=== PATIENT | male | born 1965 | race Caucasian/White ===

== ENCOUNTER 2017-03-15 09:47 | Inpatient (IN) | payer OTHER ==
[~2017-03-15] VITALS: Ht 167.6 cm; Wt 90.3 kg
[2017-03-15 10:25] LABS: Basophils # (auto) 0 uL; Basophils % (auto) 0.3 % (0.0-2.0); Eosinophils # (auto) 0.4 uL; Eosinophils % (auto) 3.3 % (0.0-7.0); Hematocrit 47.4 % (41.0-53.0); Hemoglobin 16.6 g/dL (13.5-17.5); Lymphocytes # (auto) 2.1 uL; Lymphocytes % (auto) 16.1 % (10.0-50.0); Mean Corpuscular Hemoglobin 31.3 pg (28.0-32.0); Mean Corpuscular Volume 89.3 fL (80.0-100.0); Mean Platelet Volume 7.4 fL (7.4-10.4); Monocytes # (auto) 0.9 uL; Monocytes % (auto) 6.9 % (0.0-12.0); Neutrophils # (auto) 9.8 uL; Neutrophils % (auto) 73.4 % (37.0-80.0); Platelet Count (auto) 334 10^3/uL (140-450); Red Cell Distribution Width 12.6 % (11.6-16.0); White Blood Cell 13.3 10^3/uL (4.4-10.8)
[2017-03-15 11:04] LABS: Albumin 4.1 g/dL (3.4-5.0); BUN/Creatinine Ratio 16.5; Bilirubin, Total 0.6 mg/dL (0.2-1.0); Calcium 9.2 mg/dL (8.5-10.1); Magnesium 2.5 mg/dL (1.6-2.6); Potassium 4.5 mmol/L (3.5-5.1)
[2017-03-15] MEDS ORDERED: SODIUM CHLORIDE 0.9% 1,000 ML IV ONE (11:50)
[2017-03-15] MEDS ORDERED: ASPirin 81 mg TAB PO ONE (12:00)
[2017-03-15] MEDS ORDERED: ONDANSETRON HCL 4 MG/2 ML VIAL IV ONE (12:00)
[2017-03-15] MEDS ORDERED: MORPHINE SULFATE 4 MG/ML SYRG IV ONE (12:00)
[2017-03-15] MEDS ORDERED: NITROGLYCERIN 0.2MG/HR TOPICAL PATCH TD ONE ×2 (12:20→12:30)
[2017-03-15] MEDS ORDERED: METOPROLOL TARTRATE 1MG/1ML-5ML VIAL IV ONE (12:21)
[2017-03-15] MEDS ORDERED: METOPROLOL TARTRATE 1MG/1ML-5ML VIAL IV SCH (12:30)
[2017-03-15 13:40] LABS: INR 0.9 (0.9-1.15); Partial Thromboplastin Time 29.5 sec (22.64-33.71); Prothrombin Time 9.8 sec (9.37-12.3)
[2017-03-15] MEDS ORDERED: HEPARIN SODIUM (PORCINE) 5000 UNITS/ML 1ML VIAL ONE ×2 (14:06→14:07)
[2017-03-15] MEDS ORDERED: HEPARIN SODIUM (PORCINE) 5000 UNITS/ML 1ML VIAL IV ONE ×2 (14:15→14:30)
[2017-03-15] MEDS ORDERED: IODIXANOL 320MG/ML 100ML BTL IV ONE (14:26)
[2017-03-15] MEDS ORDERED: LIDOCAINE 2%HCL (LOCAL ANESTH.) INJ 20ML MDV ONE (14:27)
[2017-03-15] MEDS ORDERED: MIDAZOLAM HCL 1MG/1ML-2 ML VIAL ONE ×2 (14:37→15:39)
[2017-03-15] MEDS ORDERED: fentaNYL CITRATE 100 MCG/2 ML VL ONE (14:38)
[2017-03-15] MEDS ORDERED: VERAPAMIL 2.5MG/ML INJ 2ML VIAL IV ONE (14:38)
[2017-03-15] MEDS ORDERED: EPTIFIBATIDE INJ (2MG/ML) 10ML VIAL IV ONE (14:38)
[2017-03-15] MEDS ORDERED: ANGIOMAX 250 MG VIAL IV ONE (14:47)
[2017-03-15] MEDS ORDERED: SODIUM CHL 0.9% 50 ML ONE (14:47)
[2017-03-15] MEDS ORDERED: IOHEXOL 350 MG/ML 100ML IJ ONE ×2 (15:05→15:27)
[2017-03-15] MEDS ORDERED: LIDOCAINE HCL 100 MG/5ML (2%) SYRG INJ IV ONE (15:07)
[2017-03-15] MEDS ORDERED: SODIUM CHLORIDE 0.9% 1,000 ML IV SCH (15:09)
[2017-03-15] MEDS ORDERED: NITROGLYCERIN 0.4 MG SL TAB SL PRN ×2 (15:15)
[2017-03-15] MEDS ORDERED: ONDANSETRON HCL 4 MG/2 ML VIAL IV PRN (15:15)
[2017-03-15] MEDS ORDERED: HYDROcodone-ACET 5/325MG TAB PO PRN (15:15)
[2017-03-15] MEDS ORDERED: ACETAMINOPHEN 500 MG TAB PO PRN (15:15)
[2017-03-15] MEDS ORDERED: MORPHINE SULF INJ 2 MG/ML SYRINGE 1ML IV PRN (15:15)
[2017-03-15] MEDS ORDERED: ATROPINE SULF 0.5 MG/5ML SYR ONE (15:17)
[2017-03-15] MEDS ORDERED: PRASUGREL HCL 10 MG TAB ONE (15:27)
[2017-03-15] MEDS ORDERED: ASPirin 81 mg TAB ONE (15:31)
[2017-03-15] MEDS ORDERED: LISINOPRIL 5 MG TAB PO ONE ×2 (17:15→18:45)
[2017-03-15 17:56] VITALS: BP 134/74
[2017-03-15 20:00] VITALS: BP 118/77
[2017-03-15 20:30] VITALS: BP 121/71
[2017-03-15] MEDS ORDERED: diphenhdrAMINE HCL 25 MG CAP PO PRN (21:00)
[2017-03-15 21:15] VITALS: BP 118/77
[2017-03-15] MEDS ORDERED: METOPROLOL TARTRATE 25 MG TAB ONE (21:56)
[2017-03-15] MEDS: ATORVASTATIN 20 MG TAB PO SCH (22:00)
[2017-03-15] MEDS: METOPROLOL TARTRATE 25 MG TAB PO SCH (22:04)
[2017-03-15] MEDS: ZOLPIDEM TARTRATE 5 MG TAB PO PRN (22:04)
[2017-03-15 22:15] VITALS: BP 122/83
[2017-03-16] VITALS: BP 115/73
[2017-03-16 04:00] VITALS: BP 113/69
[2017-03-16 06:09] LABS: Cholesterol 162 mg/dL (< 200); HDL Cholesterol 39 mg/dL (40-59); LDL Cholesterol 115 mg/dL (< 100); Triglycerides 159 mg/dL (< 150)
[2017-03-16 08:00] VITALS: BP 119/68
[2017-03-16] MEDS: ASPirin 81 mg TAB PO SCH (09:34)
[2017-03-16] MEDS: CLOPIDOGREL BISULFATE 75 MG TAB PO SCH (09:34)
[2017-03-16] MEDS: METOPROLOL TARTRATE 25 MG TAB PO SCH ×2 (09:35→22:05)
[2017-03-16] MEDS: NICOTINE 14 MG/24HR TOPICAL PATCH TD SCH (09:36)
[2017-03-16] MEDS: LISINOPRIL 5 MG TAB PO SCH (09:36)
[2017-03-16 11:20] LABS: Basophils # (auto) 0 uL; Basophils % (auto) 0.4 % (0.0-2.0); Eosinophils # (auto) 0.3 uL; Eosinophils % (auto) 2.4 % (0.0-7.0); Hematocrit 40.3 % (41.0-53.0); Lymphocytes # (auto) 2.1 uL; Lymphocytes % (auto) 16.5 % (10.0-50.0); Mean Corpuscular Hemoglobin 31.3 pg (28.0-32.0); Mean Corpuscular Hgb Conc. 34.7 g/dL (32.0-36.0); Mean Corpuscular Volume 90.2 fL (80.0-100.0); Mean Platelet Volume 7.9 fL (7.4-10.4); Monocytes # (auto) 1.2 uL; Monocytes % (auto) 9.2 % (0.0-12.0); Neutrophils # (auto) 9.1 uL; Neutrophils % (auto) 71.5 % (37.0-80.0); Platelet Count (auto) 296 10^3/uL (140-450); Red Cell Distribution Width 12.9 % (11.6-16.0); White Blood Cell 12.8 10^3/uL (4.4-10.8)
[2017-03-16 12:00] VITALS: BP 119/74
[2017-03-16 13:31] LABS: BUN/Creatinine Ratio 16.1; Calcium 8.9 mg/dL (8.5-10.1); Magnesium 2.5 mg/dL (1.6-2.6); Potassium 3.9 mmol/L (3.5-5.1)
[2017-03-16 16:00] VITALS: BP 126/89
[2017-03-16 20:00] VITALS: BP 122/76
[2017-03-16] MEDS: ATORVASTATIN 20 MG TAB PO SCH (22:04)
[2017-03-16] MEDS: ZOLPIDEM TARTRATE 5 MG TAB PO PRN (22:04)
[2017-03-17] VITALS: BP 114/82
[2017-03-17 04:00] VITALS: BP 117/78
[2017-03-17 06:38] LABS: Basophils # (auto) 0.1 uL; Basophils % (auto) 0.4 % (0.0-2.0); Eosinophils # (auto) 0.4 uL; Hematocrit 41.6 % (41.0-53.0); Hemoglobin 14.4 g/dL (13.5-17.5); Lymphocytes # (auto) 2.2 uL; Lymphocytes % (auto) 18.9 % (10.0-50.0); Mean Corpuscular Hemoglobin 31.2 pg (28.0-32.0); Mean Corpuscular Hgb Conc. 34.6 g/dL (32.0-36.0); Mean Corpuscular Volume 90.1 fL (80.0-100.0); Mean Platelet Volume 7.9 fL (7.4-10.4); Monocytes % (auto) 8.4 % (0.0-12.0); Neutrophils # (auto) 8.1 uL; Neutrophils % (auto) 69.3 % (37.0-80.0); Platelet Count (auto) 298 10^3/uL (140-450); Red Cell Distribution Width 12.9 % (11.6-16.0); White Blood Cell 11.8 10^3/uL (4.4-10.8)
[2017-03-17 06:59] LABS: BUN/Creatinine Ratio 15.4; Magnesium 2.4 mg/dL (1.6-2.6); Potassium 4.1 mmol/L (3.5-5.1)
[2017-03-17 08:01] VITALS: BP 132/88
[2017-03-17] MEDS: NICOTINE 14 MG/24HR TOPICAL PATCH TD SCH (09:41)
[2017-03-17] MEDS: CLOPIDOGREL BISULFATE 75 MG TAB PO SCH (09:42)
[2017-03-17] MEDS: ASPirin 81 mg TAB PO SCH (09:42)
[2017-03-17] MEDS: LISINOPRIL 5 MG TAB PO SCH (09:42)
[2017-03-17] MEDS: METOPROLOL TARTRATE 25 MG TAB PO SCH (09:42)
[2017-03-17] MEDS ORDERED: [UNRECOGNIZED DRUG - CODE] TD (10:11)
[2017-03-17] MEDS ORDERED: MET25T PO (10:11)
[2017-03-17] MEDS ORDERED: ASPI81CH43 PO (10:11)
[2017-03-17] MEDS ORDERED: ATOR20TA50 PO (10:11)
[2017-03-17] MEDS ORDERED: LISI-275 PO (10:11)
[2017-03-17] MEDS ORDERED: CLOP75TA28 PO (10:11)
[2017-03-17 12:54] VITALS: BP 130/97
[2017-03-17 13:05] VITALS: BP 130/97
[2017-03-17 14:21] VITALS: BP 130/97
== END 2017-03-17 15:00 | disposition home health service (06) | DRG 249 ==
LOC: ER 09:51 → DOU IN ICU 09:52 → ER 16:26
PROVIDERS: ADMIT Internal Medicine Cardiovascular Disease; ATTEND Internal Medicine
PROC: 02703DZ Dilation of Coronary Artery, One Artery with Intraluminal Device, Percutaneous Approach (ICD-10-PCS; principal; 2017-03-15)
PROC: 02C03ZZ Extirpation of Matter from Coronary Artery, One Artery, Percutaneous Approach (ICD-10-PCS; 2017-03-15)
PROC: 4A023N7 Measurement of Cardiac Sampling and Pressure, Left Heart, Percutaneous Approach (ICD-10-PCS; 2017-03-15)
PROC: B211YZZ Fluoroscopy of Multiple Coronary Arteries using Other Contrast (ICD-10-PCS; 2017-03-15)
DX: I21.4 Non-ST elevation (NSTEMI) myocardial infarction (principal); E78.5 Hyperlipidemia, unspecified; F17.210 Nicotine dependence, cigarettes, uncomplicated; I11.9 Hypertensive heart disease without heart failure
CPT/HCPCS: 36415; 71020; 80048; 80053; 80061; 83735; 84484; 85025; 85379; 85610; 85730; 87081; 93005; 96361; 96374; 96375; 99152; 99291; C1874; C1887; J0461; J2250; J2405; Q9967